=== PATIENT | male | born 1975 | race Two or more races ===

== ENCOUNTER 2018-10-02 18:48 | Emergency (ER) | payer MEDICAID, OTHER ==
[~2018-10-02] VITALS: Ht 175.3 cm; Wt 117.9 kg
[2018-10-02] MEDS ORDERED: cloNIDine HCL 0.1 MG TAB PO ONE (19:00)
[2018-10-02] MEDS ORDERED: LABETALOL HCL 5 MG/ML ML 20ML VIAL IV ONE ×2 (21:15→23:30)
[2018-10-02] MEDS ORDERED: LABETALOL HCL 5 MG/ML 4ML SYRINGE IV ONE (21:23)
[2018-10-02 21:57] LABS: Magnesium 2.2 mg/dL (1.6-2.6)
[2018-10-02 22:01] LABS: Basophils # (auto) 0 uL; Basophils % (auto) 0.5 % (0.0-2.0); Eosinophils # (auto) 0.3 uL; Eosinophils % (auto) 4.2 % (0.0-7.0); Hematocrit 48.4 % (41.0-53.0); Hemoglobin 16.6 g/dL (13.5-17.5); Lymphocytes # (auto) 3.3 uL; Lymphocytes % (auto) 39.1 % (10.0-50.0); Mean Corpuscular Hemoglobin 31.5 pg (28.0-32.0); Mean Corpuscular Hgb Conc. 34.4 g/dL (32.0-36.0); Mean Corpuscular Volume 91.6 fL (80.0-100.0); Monocytes # (auto) 0.6 uL; Monocytes % (auto) 7.6 % (0.0-12.0); Neutrophils % (auto) 48.6 % (37.0-80.0); Nucleated Red Blood Cells % 0.2 %; Platelet Count (auto) 153 10^3/uL (140-450); Red Blood Cells 5.28 10^6/uL (4.5-5.90); Red Cell Distribution Width 13.8 % (11.8-14.3); White Blood Cell 8.3 10^3/uL (4.4-10.8)
[2018-10-02 22:05] LABS: Albumin 3.7 g/dL (3.4-5.0); Anion Gap 11 (5-15); BUN/Creatinine Ratio 14.1; Blood Urea Nitrogen 10 mg/dL (7-18); Calcium 8.8 mg/dL (8.5-10.1); Carbon Dioxide 21 mmol/L (21-32); Chloride 108 mmol/L (98-107); GFR African American 155 mL/min; GFR Non-African American 128 mL/min; Glucose 108 mg/dL (74-106); Potassium 3.8 mmol/L (3.5-5.1); Sodium 140 mmol/L (136-145)
[2018-10-02 22:08] LABS: Alanine Aminotransferase 157 U/L (16-61); Alkaline Phosphatase 117 U/L (45-117); Aspartate Aminotransferase 114 U/L (15-37); Bilirubin, Total 0.4 mg/dL (0.2-1.0)
[2018-10-02 22:16] LABS: INR 1.05 (0.9-1.15); Partial Thromboplastin Time 28.4 sec (23.78-33.04); Prothrombin Time 11.2 sec (9.27-12.13)
[2018-10-02] MEDS ORDERED: PHENYLEPHRINE HCL 1 % NASAL SPRAY 15ML ONE (23:15)
[2018-10-02] MEDS ORDERED: OXYMETAZOLINE HCL 0.05 % NASAL SPRAY 15ML ONE ×2 (23:32→23:45)
[2018-10-02 23:56] VITALS: BP 142/105
== END 2018-10-03 00:13 | disposition home or self-care (01) ==
LOC: ER 18:48
DX: I10 Essential (primary) hypertension (principal); R04.0 Epistaxis; K72.90 Hepatic failure, unspecified without coma; Z88.5 Allergy status to narcotic agent
CPT/HCPCS: 36415; 71045; 80053; 83735; 83880; 84443; 84484; 85025; 85379; 85610; 85730; 94761; 96374; 99284; J3490

== ENCOUNTER 2018-12-12 22:06 | Inpatient (IN) | payer SELFPAY ==
[~2018-12-12] VITALS: Ht 175.3 cm; Wt 129.5 kg
[2018-12-12] MEDS ORDERED: cloNIDine HCL 0.1 MG TAB PO ONE (22:30)
[2018-12-12] MEDS ORDERED: HYDROcodone-ACET 10/325MG TAB PO ONE (22:30)
[2018-12-13] MEDS ORDERED: cloNIDine HCL 0.1 MG TAB PO ONE (00:30)
[2018-12-13] MEDS ORDERED: LABETALOL HCL 5 MG/ML ML 20ML VIAL IV ONE (03:00)
[2018-12-13] MEDS ORDERED: ACETAMINOPHEN 325 MG TAB PO ONE (03:00)
[2018-12-13] MEDS ORDERED: VANCOMYCIN 1GM/250ML 250 ML IV ONE (03:00)
[2018-12-13] MEDS ORDERED: TETANUS-DIPTH-ACEL PERTUSSIS 0.5ML SYRG IM ONE (03:00)
[2018-12-13] MEDS ORDERED: hydrALAZINE HCL 20 MG/ML VL IV ONE (04:30)
[2018-12-13] MEDS ORDERED: ONDANSETRON HCL 4 MG/2 ML VIAL IV PRN (05:30)
[2018-12-13 05:33] LABS: Basophils # (auto) 0 uL; Basophils % (auto) 0.3 % (0.0-2.0); Eosinophils # (auto) 0.1 uL; Eosinophils % (auto) 0.6 % (0.0-7.0); Lymphocytes # (auto) 1.9 uL; Lymphocytes % (auto) 13.3 % (10.0-50.0); Mean Corpuscular Hemoglobin 30.7 pg (28.0-32.0); Mean Corpuscular Hgb Conc. 33.3 g/dL (32.0-36.0); Mean Corpuscular Volume 92.2 fL (80.0-100.0); Monocytes # (auto) 0.9 uL; Monocytes % (auto) 6.2 % (0.0-12.0); Neutrophils # (auto) 11.4 uL; Neutrophils % (auto) 79.6 % (37.0-80.0); Nucleated Red Blood Cells % 0.1 %; Platelet Count (auto) 143 10^3/uL (140-450); Red Blood Cells 4.89 10^6/uL (4.5-5.90); Red Cell Distribution Width 14.4 % (11.8-14.3); White Blood Cell 14.3 10^3/uL (4.4-10.8)
[2018-12-13 05:47] LABS: BUN/Creatinine Ratio 10.5; Calcium 8.6 mg/dL (8.5-10.1); Potassium 4.3 mmol/L (3.5-5.1)
[2018-12-13] MEDS ORDERED: CLINDAMYCIN 600MG IV 50 ML IV SCH ×2 (06:00→08:00)
--- NOTE | 2018-12-13 08:55 | NUR ---
MS admit from [facility] admitted to tele/MS after SBAR received. Patient oriented to Sena Carpenter primary RN, unit, room, bed, and unit policies regarding patient care and visiting hours. Patient weighed by bed scale and encouraged to call if they need something. All questions and concerns addressed, patient verbalized understanding. Instructed patient on POC, fall precautions and to call for assistance as needed. Patient verbalized understanding. Bed in low locked position with x2 side rails up, call light within reach. Puncture wound noted to the right foot. No drainage noted. Patient states "I dropped a drill on it a couple days ago and it just progressively got like this." Respirations even and unlabored, no distress noted. Will continue to monitor q1hr & PRN.
[2018-12-13] MEDS ORDERED: cefTRIAXone 1GM/50ML D5W 50 ML IV SCH (09:00)
[2018-12-13] MEDS: amLODIPine BESYLATE 5 MG TAB PO SCH (11:00)
[2018-12-13] MEDS: METOPROLOL TARTRATE 50 MG TAB PO SCH ×2 (11:00→21:48)
--- NOTE | 2018-12-13 11:00 | NUR ---
RE: home medications Patient unable to report home medications. Patient states "I was on a couple different blood pressure medications but then I ran out a few weeks ago and I haven't got back into the office to get them refilled." Instructed patient to have spouse or family member bring a list of home medications to bedside. Patient verbalized understanding.
[2018-12-13 13:00] VITALS: BP 114/60
[2018-12-13] MEDS: CLINDAMYCIN 600MG IV 50 ML IV SCH (15:37)
[2018-12-13] MEDS: HYDROcodone-ACET 5/325MG TAB PO PRN (15:38)
--- NOTE | 2018-12-13 15:45 | NUR ---
Family at bedside
--- NOTE | 2018-12-13 16:22 | NUR ---
Patient resting patient resting in bed with even and unlabored respirations, no distress noted. Bed in low locked position with x2 side rails up, call light within reach. Will continue to monitor q1hr & PRN.
[2018-12-13 17:24] VITALS: BP 119/68
--- NOTE | 2018-12-13 18:30 | NUR ---
specimen cup left at bedside for UA per MD's orders.
--- NOTE | 2018-12-13 18:47 | NUR ---
End of shift patient resting in bed with even and unlabored respirations, no distress noted. Bed in low position, x2 side rails up, call light within reach. Patient has right foot elevated. No drainage noted at this time from right foot wound.
--- NOTE | 2018-12-13 19:16 | NUR ---
Care endorsed to RUBENS Cha.
--- NOTE | 2018-12-13 20:08 | NUR ---
Opening Shift Note Assumed care of patient, awake and alert. No S/S of distress/SOB or pain. Friends are present at bedside. Instructed on POC and to call for assist PRN, will continue to monitor for changes Q1hr and PRN.
[2018-12-13 21:13] LABS: Urine Bacteria NONE SEEN /hpf (None Seen); Urine Blood Negative /uL (Negative); Urine Mucus FEW (None Seen); Urine Specific Gravity 1.024 (1.001-1.035); Urine WBC 4 /hpf (0 - 3)
[2018-12-13 22:03] VITALS: BP 132/84
--- NOTE | 2018-12-13 22:40 | NUR ---
The patient states that he feels hot and believes he is having a fever. Temperature which resulted as 99.2. Will medicate with prn Tylenol.
[2018-12-13] MEDS: ACETAMINOPHEN 500 MG TAB PO PRN (22:47)
[2018-12-14] MEDS: CLINDAMYCIN 600MG IV 50 ML IV SCH ×4 (00:05→23:27)
[2018-12-14 05:26] VITALS: BP 127/80
--- NOTE | 2018-12-14 07:25 | NUR ---
CRITICAL LAB Critical lab (103 fasting glucose) has been received. Will endorse to day shift RN.
--- NOTE | 2018-12-14 07:30 | NUR ---
Patient in bed, awake, oriented x4. Swelling with puncture scab on the right foot noted. Photos of the right foot not taken upon admission. Will put in Wound Consult.
[2018-12-14] MEDS: ACETAMINOPHEN 500 MG TAB PO PRN ×2 (09:04→23:27)
--- NOTE | 2018-12-14 09:04 | NUR ---
Patient stated he has headache. Tylenol PO given as ordered.
[2018-12-14] MEDS: amLODIPine BESYLATE 5 MG TAB PO SCH (09:05)
[2018-12-14] MEDS: METOPROLOL TARTRATE 50 MG TAB PO SCH ×2 (09:05→21:17)
--- NOTE | 2018-12-14 09:10 | NUR ---
Ice bag given for comfort on the eye area.
--- NOTE | 2018-12-14 09:58 | NUR ---
WOUND CARE NOTE: Wound care in to see patient per wound care request regarding "Right foot puncture" wound that are noted present on admission. Patient is 43 years old male with admitting diagnosis of R Foot Cellulitis. Patient is resting in bed in Rm. 271A. He's awake, alert and oriented. He's in no stated pain at this time however states pain upon palpation. Patient is ambulatory but reported that its hard and painful for him to walk due to his R foot swelling. He's self turn and reposition and his current David score is 21. Skin/wound assessment done with the assistance of another nurse, RUBENS Livingston. Noted patient's R dorsal foot is red and erythremic in comparison to his LLE. 1.5x0.5cm scabbed wound doted to his distal aspect of R dorsal foot; distal to it is 1.5x0.7cm ecchymotic serum filled blister, duong wound is bright red, edematous, no drainage/ odor noted. pedal pulse present. Patient reported that he accidentally dropped a drill to his R foot "last , then it turns red and swell up". Patient denies health story other than hypertension. Cleansed patient's R foot wound with NS, patted dry with sterile gauze, applied Thera honey gel and covered with Opti foam gentle as MD ordered. Patient tolerated well. No pressure injury related issue noted. Bed in low position,call mullen within reach, all safety precautions in placed. RECOMMENDATION: EOD/PRN dressing change to R Foot wound per MD order,Podiatry consult, redistribute pressure points with pillows, elevate affected extremity on pillow, continue monitoring by wound care while patient is hospitalized. Addendum: 12/14/18 at 1208 by Wanda Tran RN Amended: Links added.
[2018-12-14] MEDS: CEFTRIAXONE SODIUM 2 GM in D5W 5% 50 ML IV SCH (10:22)
--- NOTE | 2018-12-14 13:53 | NUR ---
Dr. Raymond at bedside. ordered to continue with IV antibiotics.
--- NOTE | 2018-12-14 16:37 | NUR ---
Ice pack provided and applied at the bottom of right foot as requested by the patient. Family at bedside.
[2018-12-14 21:49] VITALS: BP 158/97
[2018-12-15 04:51] VITALS: BP 161/96
[2018-12-15] MEDS: amLODIPine BESYLATE 5 MG TAB PO SCH ×2 (05:19→09:58)
[2018-12-15] MEDS: ACETAMINOPHEN 500 MG TAB PO PRN (05:20)
[2018-12-15] MEDS: HYDROcodone-ACET 5/325MG TAB PO PRN ×5 (05:20→22:42)
[2018-12-15 06:05] LABS: Basophils # (auto) 0 uL; Basophils % (auto) 0.1 % (0.0-2.0); Eosinophils # (auto) 0.4 uL; Eosinophils % (auto) 2.9 % (0.0-7.0); Hemoglobin 14.9 g/dL (13.5-17.5); Lymphocytes # (auto) 2.2 uL; Lymphocytes % (auto) 14.8 % (10.0-50.0); Mean Corpuscular Hemoglobin 31.2 pg (28.0-32.0); Mean Corpuscular Hgb Conc. 33.8 g/dL (32.0-36.0); Mean Corpuscular Volume 92.3 fL (80.0-100.0); Monocytes # (auto) 1.2 uL; Monocytes % (auto) 8.1 % (0.0-12.0); Neutrophils # (auto) 10.9 uL; Neutrophils % (auto) 74.1 % (37.0-80.0); Nucleated Red Blood Cells % 0.1 %; Platelet Count (auto) 157 10^3/uL (140-450); Red Blood Cells 4.77 10^6/uL (4.5-5.90); Red Cell Distribution Width 14.1 % (11.8-14.3); White Blood Cell 14.7 10^3/uL (4.4-10.8)
[2018-12-15 06:24] LABS: Potassium 4.1 mmol/L (3.5-5.1)
[2018-12-15 06:33] LABS: BUN/Creatinine Ratio 19.1
[2018-12-15 07:43] LABS: CRP High Sensitivity 22.8 mg/dL (< 0.3)
[2018-12-15 08:00] VITALS: BP 140/89
[2018-12-15] MEDS: CLINDAMYCIN 600MG IV 50 ML IV SCH ×2 (08:30→17:12)
--- NOTE | 2018-12-15 08:50 | NUR ---
Opening Note Assumed care of patient, pt is awake and alert and sitting quietly in bed. Stated he is in mild pain, but is manageable. No s/s of SOB or distress. Discussed POC with pt. will continue to monitor for changes Q1hr and PRN.
[2018-12-15] MEDS: CEFTRIAXONE SODIUM 2 GM in D5W 5% 50 ML IV SCH (09:56)
[2018-12-15] MEDS: METOPROLOL TARTRATE 50 MG TAB PO SCH ×2 (09:57→22:44)
--- NOTE | 2018-12-15 10:43 | NUR ---
Pt stated he is in moderate pain, 7/10. Pt stated the pain is throbbing and is tolerable. Franklin PO given. Will continue to assess and reevaluate.
[2018-12-15 12:00] VITALS: BP 131/87
--- NOTE | 2018-12-15 14:23 | NUR ---
AT BEDSIDE Dr. Raymond present at bedside. stated an arterial study should be ordered on the R leg to further assess circulation in R foot. Addendum: 12/15/18 at 1426 by ALEXANDRIA FLANAGAN RN RN MD stated to continue with antibiotic treatment
[2018-12-15 16:00] VITALS: BP 148/88
[2018-12-15 21:54] VITALS: BP 158/77
[2018-12-16 04:38] VITALS: BP 140/84
[2018-12-16 05:57] LABS: Basophils # (auto) 0 uL; Basophils % (auto) 0.3 % (0.0-2.0); Eosinophils # (auto) 0.5 uL; Eosinophils % (auto) 4.1 % (0.0-7.0); Hematocrit 44.5 % (41.0-53.0); Hemoglobin 15.2 g/dL (13.5-17.5); Lymphocytes # (auto) 3.2 uL; Lymphocytes % (auto) 26.9 % (10.0-50.0); Mean Corpuscular Hemoglobin 31.8 pg (28.0-32.0); Mean Corpuscular Hgb Conc. 34.1 g/dL (32.0-36.0); Mean Corpuscular Volume 93.3 fL (80.0-100.0); Monocytes % (auto) 8.6 % (0.0-12.0); Neutrophils # (auto) 7.1 uL; Neutrophils % (auto) 60.1 % (37.0-80.0); Nucleated Red Blood Cells % 0.1 %; Platelet Count (auto) 207 10^3/uL (140-450); Red Blood Cells 4.76 10^6/uL (4.5-5.90); Red Cell Distribution Width 14.3 % (11.8-14.3); White Blood Cell 11.8 10^3/uL (4.4-10.8)
[2018-12-16 06:04] LABS: INR 1.01 (0.9-1.15); Prothrombin Time 10.8 sec (9.27-12.13)
[2018-12-16 06:21] LABS: Albumin 2.8 g/dL (3.4-5.0); Calcium 8.5 mg/dL (8.5-10.1); Potassium 4.2 mmol/L (3.5-5.1)
[2018-12-16 06:25] LABS: Bilirubin, Total 0.4 mg/dL (0.2-1.0)
[2018-12-16 08:00] VITALS: BP 158/91
[2018-12-16] MEDS: CLINDAMYCIN 600MG IV 50 ML IV SCH ×3 (08:12→17:01)
[2018-12-16] MEDS: HYDROcodone-ACET 5/325MG TAB PO PRN ×2 (08:27→14:11)
--- NOTE | 2018-12-16 08:30 | NUR ---
OPENING NOTE Pt in bed with eyes open. A&O x4. C/O 10/10 throbbing pain in dorsal aspect of right foot. Pt is otherwise stable at this time.
--- NOTE | 2018-12-16 08:36 | NUR ---
PAIN Pt complains of 10/10 throbbing pain to right foot. West 5/325 1 tab PO administered as requested. Pt pain goal is 5/10.
[2018-12-16 09:00] VITALS: BP 158/91
[2018-12-16] MEDS: amLODIPine BESYLATE 5 MG TAB PO SCH (10:00)
[2018-12-16] MEDS: CEFTRIAXONE SODIUM 2 GM in D5W 5% 50 ML IV SCH (10:39)
[2018-12-16] MEDS: METOPROLOL TARTRATE 50 MG TAB PO SCH ×2 (10:40→21:33)
--- NOTE | 2018-12-16 12:50 | NUR ---
ROUNDING Dr Raymond rounding on patient, family at bedside.
[2018-12-16] MEDS ORDERED: PIPERACILLIN-TAZOB 3.375GM 100 ML IV ONE (13:00)
[2018-12-16 13:11] VITALS: BP 157/87
--- NOTE | 2018-12-16 13:46 | NUR ---
WOUND CARE Dressing to right foot removed. Wound is closed. bed is purple in color and surrounding tissues are red and edematous. Cleansed with wound cleanser and pat dry. Thera-honey applied and covered with foam dressing. patient tolerates dressing change well.
--- NOTE | 2018-12-16 14:25 | NUR ---
NUTRITION ASSESSMENT NOTES Please refer to link notes of nutrition screen form filed under the intervention section of the plan of care for further details. Est. Need based on AdBW (90 kg): 1800 kcal to 2200 kcal (20-25 kcal/kgAdBW), 90 gms to 108 gms pro (1.0-1.2 gms/kgBW). Will continue to monitor pertinent labs and reassess nutrient need prn Thank you. Addendum: 12/16/18 at [address] Amended: Links added.
--- NOTE | 2018-12-16 14:45 | NUR ---
PODIATRY BEDSIDE Dr Marti at bedside performing wound care on patient. Patient tolerated well.
--- NOTE | 2018-12-16 16:11 | NUR ---
TELEPHONE ORDERS Telephone orders received from Dr Marti and read back. Orders noted.
[2018-12-16 16:43] VITALS: BP 157/95
--- NOTE | 2018-12-16 16:57 | NUR ---
Paged Dr Raymond paged r/t pain medications.
--- NOTE | 2018-12-16 17:10 | NUR ---
TELEPHONE ORDERS Dr Raymond returned page, pain management discussed. New orders received and noted.
[2018-12-16] MEDS ORDERED: HYDROcodone-ACET 5/325MG TAB PO ONE (17:15)
[2018-12-16] MEDS: PIPERACILLIN-TAZOB 3.375GM 100 ML IV SCH (18:05)
--- NOTE | 2018-12-16 18:16 | NUR ---
TELEPHONE ORDERS Patient continues to have 10/10 right foot pain after administration of pain medications. Discussed pain management. Hospitalist paged. Telephone orders read back and noted.
--- NOTE | 2018-12-16 19:10 | NUR ---
ASSUMED CARE, PT. AWAKE, RELATIVE AT BEDSIDE, DRESSING ON RT. FOOT DRY AND INTACT, NO C/O PAIN, NO SOB.
[2018-12-16 21:34] VITALS: BP 152/93
[2018-12-16] MEDS: DAKINS QUARTER STR 0.125% (NaHypochlorite) 473 ML TOPICAL SOL TOP SCH (21:34)
[2018-12-16] MEDS: HYDROmorphone HCL 2 MG/ML VL IV PRN (21:34)
[2018-12-17 05:00] VITALS: BP 155/96
[2018-12-17 06:32] LABS: Basophils # (auto) 0 uL; Basophils % (auto) 0.6 % (0.0-2.0); Eosinophils # (auto) 0.5 uL; Eosinophils % (auto) 6.4 % (0.0-7.0); Hematocrit 44.9 % (41.0-53.0); Hemoglobin 15.3 g/dL (13.5-17.5); Lymphocytes # (auto) 2.5 uL; Lymphocytes % (auto) 29.3 % (10.0-50.0); Mean Corpuscular Hemoglobin 31.6 pg (28.0-32.0); Monocytes # (auto) 0.7 uL; Monocytes % (auto) 8.8 % (0.0-12.0); Neutrophils # (auto) 4.6 uL; Neutrophils % (auto) 54.9 % (37.0-80.0); Nucleated Red Blood Cells % 0.1 %; Platelet Count (auto) 221 10^3/uL (140-450); Red Blood Cells 4.83 10^6/uL (4.5-5.90); Red Cell Distribution Width 14.1 % (11.8-14.3); White Blood Cell 8.4 10^3/uL (4.4-10.8)
[2018-12-17 06:44] LABS: BUN/Creatinine Ratio 19.3; Calcium 9.2 mg/dL (8.5-10.1); Potassium 4.2 mmol/L (3.5-5.1)
--- NOTE | 2018-12-17 07:55 | NUR ---
Opening Shift Note Assumed care of patient, awake and alert. No S/S of distress/SOB or pain. Instructed on POC and to call for assist PRN, will continue to monitor for changes Q1hr and PRN.
[2018-12-17 08:14] VITALS: BP 154/101
[2018-12-17] MEDS: CLINDAMYCIN 600MG IV 50 ML IV SCH ×3 (08:29→17:00)
[2018-12-17] MEDS: PIPERACILLIN-TAZOB 3.375GM 100 ML IV SCH ×4 (08:30→18:14)
[2018-12-17] MEDS: METOPROLOL TARTRATE 50 MG TAB PO SCH ×2 (08:55→22:19)
[2018-12-17] MEDS: amLODIPine BESYLATE 5 MG TAB PO SCH (08:56)
--- NOTE | 2018-12-17 12:30 | NUR ---
WOUND CARE COMPLETED ORDERED. PATIENT PRE-MEDICATED AND TOLERATED WELL.
[2018-12-17 12:53] VITALS: BP 156/109
[2018-12-17] MEDS: HYDROmorphone HCL 2 MG/ML VL IV PRN ×2 (13:18→22:29)
[2018-12-17] MEDS: DAKINS QUARTER STR 0.125% (NaHypochlorite) 473 ML TOPICAL SOL TOP SCH ×2 (13:18→22:20)
[2018-12-17 16:00] VITALS: BP 139/40
[2018-12-17 16:24] VITALS: BP 153/103
[2018-12-17] MEDS: HYDROcodone-ACET 5/325MG TAB PO PRN (17:00)
--- NOTE | 2018-12-17 18:19 | NUR ---
SURGICAL SHOE Phone call placed to materials for surgical shoe. Materials will deliver shoe.
--- NOTE | 2018-12-17 19:09 | NUR ---
Opening Shift Note Assumed care of patient, awake and alertx4. No S/S of distress/SOB or pain. Dressing on right foot is clean, dry, and intact. Family is at bedside. Instructed on POC and to call for assist PRN, will continue to monitor for changes Q1hr and PRN.
[2018-12-17 22:00] VITALS: BP 150/99
[2018-12-17] MEDS: ASCORBIC ACID 500 MG TAB PO SCH (22:19)
--- NOTE | 2018-12-17 22:48 | NUR ---
Wound care done Dressing change as ordered. Patient tolerated well with complaints of minimal pain. Right foot had swelling with purple coloring noted around incision site, foot is warm to touch. Patient is able to wiggle toes, has sensation to touch, and circulation is good. Right dorsalis pedis pulse noted to be 2+ in strength with regular rhythm and capillary refill is less than 3 seconds.
[2018-12-18] MEDS: PIPERACILLIN-TAZOB 3.375GM 100 ML IV SCH ×3 (00:08→12:00)
[2018-12-18] MEDS: CLINDAMYCIN 600MG IV 50 ML IV SCH ×2 (00:08→08:00)
[2018-12-18] MEDS: HYDROcodone-ACET 5/325MG TAB PO PRN (00:29)
[2018-12-18 05:00] VITALS: BP 121/84
--- NOTE | 2018-12-18 07:00 | NUR ---
Opening Shift Note Assumed care of patient, awake, alert, and oriented x4. No S/S of distress/SOB, but patient reports right foot pain of 5/10. Bed locked and in lowest position and call light is within reach. Instructed on POC and to call for assist PRN, and patient verbalized understanding. Will continue to monitor for changes Q1hr and PRN.
[2018-12-18 09:00] VITALS: BP 139/98
[2018-12-18] MEDS: ASCORBIC ACID 500 MG TAB PO SCH (09:58)
[2018-12-18] MEDS: METOPROLOL TARTRATE 50 MG TAB PO SCH (09:59)
[2018-12-18] MEDS: amLODIPine BESYLATE 5 MG TAB PO SCH (10:00)
[2018-12-18] MEDS ORDERED: MULTIPLE VITAMINS W/ MINERALS TAB PO SCH (10:00)
[2018-12-18] MEDS: DAKINS QUARTER STR 0.125% (NaHypochlorite) 473 ML TOPICAL SOL TOP SCH (11:00)
--- NOTE | 2018-12-18 11:00 | NUR ---
Dr. Roman at bedside. New orders received.
[2018-12-18 11:08] VITALS: BP 139/98
--- NOTE | 2018-12-18 11:45 | NUR ---
Dressing changed as ordered. Patient tolerated well. Will continue with patient discharge.
[2018-12-18] MEDS: HYDROmorphone HCL 2 MG/ML VL IV PRN (11:50)
== END 2018-12-18 12:00 | disposition home or self-care (01) | DRG 603 ==
LOC: ER 22:06 → OVERFLOW 12-13 05:23 → WEST WING 12-13 09:03
PROVIDERS: ADMIT Nurse Practitioner Family; ATTEND Internal Medicine Pulmonary Disease
DX: L03.115 Cellulitis of right lower limb (principal); E44.1 Mild protein-calorie malnutrition; Z68.41 Body mass index [BMI] 40.0-44.9, adult; R65.10 Systemic inflammatory response syndrome (SIRS) of non-infectious origin without acute organ dysfunction; I10 Essential (primary) hypertension; E66.01 Morbid (severe) obesity due to excess calories; S91.331A Puncture wound without foreign body, right foot, initial encounter; S90.31XA Contusion of right foot, initial encounter; W20.8XXA Other cause of strike by thrown, projected or falling object, initial encounter; Y93.89 Activity, other specified; Z88.5 Allergy status to narcotic agent; Z83.3 Family history of diabetes mellitus; Z91.19 Patient's noncompliance with other medical treatment and regimen; Y92.89 Other specified places as the place of occurrence of the external cause; Y99.8 Other external cause status
CPT/HCPCS: 36415; 73630; 73700; 80048; 80053; 81001; 82947; 83605; 85025; 85610; 85652; 86141; 87040; 87205; 90471; 90715; 93925; 96365; 96375; G0378; J0696; J2543; J3490; J7060